=== PATIENT | male | born 1935 | race Caucasian/White ===

== ENCOUNTER 2016-09-17 23:00 | Emergency (ER) | payer MEDICARE, BC ==
--- NOTE | ~2016-09-17 | CT71 ---
[facility] A Service [facility] RADIOLOGY TEXT RESULTS PATIENT: HANNA RBOLES LOCATION: SED : 34 UNIT #: [id number] AGE: [address]: Dione Francis MD SEX: M ORDER DR: [id number] [place] [id number] E MR#: [id number] Acc #: [id number] NAME: HANNA ROBLES. : 1935 SEX: M STUDY DATE/TIME: 09/17/2016 23:41 UNIT: SED ROOM: STUDY DESCRIPTION: CT Head Wo Contrast Attending Physician: Dione Francis M.D. Ordering Physician: Dione Francis M.D. Primary Care Physician: Alma Delia Lorenzana M.D. MEDICAL IMAGING REPORT This report is preliminary unless electronic signature is present. EXAM CT scan of the head without contrast INDICATIONS Fall with head trauma tonight with headache. COMPARISON 01/28/2012 TECHNIQUE Axial noncontrast images were obtained from the skull base to the vertex. This CT exam was performed with one or more of the following radiation dose reduction techniques: Automatic exposure control, adjustment of mA and/or kV according to patient size, and iterative reconstruction. FINDINGS Ventricular size and configuration are normal. There is no evidence of acute infarct or hemorrhage. There are no extraaxial fluid collections. No mass lesion or mass effect is seen. There are no skull fractures. IMPRESSION Normal noncontrast head CT. Dictated by... Kishor Murphy M.D. THIS IS AN ELECTRONICALLY VERIFIED REPORT Kishor Murphy M.D. at 09/18/2016 2:12 AM FEL/[facility] A Service [facility] RADIOLOGY TEXT RESULTS PATIENT: HANNA ROBLES LOCATION: SED : 34 UNIT #: [id number] AGE: [address]: Dione Francis MD SEX: M ORDER DR: TD: 09/18/2016 00:47 JOB #: [id number] MEDICAL IMAGING REPORT Page 1 of 1
--- NOTE | ~2016-09-17 | CR230 ---
[facility]. [facility] A Service of [facility] & [facility] RADIOLOGY TEXT RESULTS PATIENT: HANNA ROBLES LOCATION: SED : 34 UNIT #: [id number] AGE: [address]: Dione Francis MD SEX: M ORDER DR: [id number] [place] [id number] E MR#: [id number] Acc #: [id number] NAME: HANNA ROBLES : 1935 SEX: M STUDY DATE/TIME: 09/17/2016 23:44 UNIT: SED ROOM: STUDY DESCRIPTION: CR Shoulder Min 2 View Rt Attending Physician: Dione Francis M.D. Ordering Physician: Dione Francis M.D. Primary Care Physician: Alma Delia Lorenzana M.D. MEDICAL IMAGING REPORT This report is preliminary unless electronic signature is present. EXAM Right shoulder INDICATIONS Right shoulder pain after fall tonight. FINDINGS Three views of the right shoulder were obtained. There is an acute fracture through the humeral neck. There is slight impaction of the neck into the head. There is no dislocation. IMPRESSION There is a roughly transverse fracture through the humeral neck with slight impaction into the head. Dictated by... Kishor Murphy M.D. THIS IS AN ELECTRONICALLY VERIFIED REPORT Kishor Murphy M.D. at 09/18/2016 2:12 AM INNA/[facility] TD: 09/18/2016 00:45 JOB #: [id number] MEDICAL IMAGING REPORT Page 1 of 1
--- NOTE | ~2016-09-17 | CR157 ---
[facility]. [facility] A Service of [facility] & [facility] RADIOLOGY TEXT RESULTS PATIENT: HANNA ROBLES LOCATION: SED : 34 UNIT #: [id number] AGE: [address]: Dione Francis MD SEX: M ORDER DR: [id number] [place] [id number] E MR#: [id number] Acc #: [id number] NAME: HANNA ROBLES : 1935 SEX: M STUDY DATE/TIME: 09/17/2016 23:44 UNIT: SED ROOM: STUDY DESCRIPTION: CR Humerus Min 2 View Rt Attending Physician: Dione Francis M.D. Ordering Physician: Dione Francis M.D. Primary Care Physician: Alma Delia Lorenzana M.D. MEDICAL IMAGING REPORT This report is preliminary unless electronic signature is present. EXAM Right humerus INDICATIONS Fall tonight with pain in humerus. FINDINGS AP and lateral views of the humerus show a transverse fracture through the humeral neck with slight impaction into the head. Otherwise, the bones are normal. Dictated by... Kishor Murphy M.D. THIS IS AN ELECTRONICALLY VERIFIED REPORT Kishor Murphy M.D. at 09/18/2016 2:12 AM INNA/[facility] TD: 09/18/2016 00:48 JOB #: [id number] MEDICAL IMAGING REPORT Page 1 of 1
[~2016-09-17 23:00] MED LIST: ASPIRIN PO; ATENOLOL PO; CARTIA XT PO; MAXITROL EYE DRO5 ML OP; TYLENOL #3 PO
== END 2016-09-18 01:18 | disposition home or self-care (01) ==
LOC: SED 23:00
DX: S42.301A Unspecified fracture of shaft of humerus, right arm, initial encounter for closed fracture (principal); I10 Essential (primary) hypertension; E11.9 Type 2 diabetes mellitus without complications; Z88.2 Allergy status to sulfonamides; Z79.82 Long term (current) use of aspirin; Z79.899 Other long term (current) drug therapy; W01.0XXA Fall on same level from slipping, tripping and stumbling without subsequent striking against object, initial encounter; Y92.009 Unspecified place in unspecified non-institutional (private) residence as the place of occurrence of the external cause
CPT/HCPCS: 70450; 73030; 73060; 99284